=== PATIENT | male | born 1980 | race Caucasian/White ===

== ENCOUNTER 2018-05-29 18:19 | Emergency (ER) | payer MEDICAID, OTHER ==
[~2018-05-29] VITALS: Ht 165.1 cm; Wt 88.5 kg
[~2018-05-29 18:19] MED LIST: MOTRIN; SEPTRA
[2018-05-29 18:28] VITALS: BP 141/106
--- NOTE | 2018-05-29 18:45 | NUR ---
FLU SWAB SENT TO LAB
[2018-05-29] MEDS ORDERED: ACETAMINOPHEN 325 MG TAB PO ONE (20:30)
--- NOTE | 2018-05-29 20:30 | NUR ---
C/O RUNNY NOSE,BODY ACHE ,FEVER, COUGH,N/V X 3 DAYS. ORAL TEMP 97.7 AT THIS TIME. BREATHING EQUAL AND UNLABORED AT THIS TIME. ER MD MADE AWARE OF PT STATUS. MED HX: ASTHMA MED : NONE
[2018-05-29 21:27] VITALS: BP 146/87
--- NOTE | 2018-05-29 21:27 | NUR ---
Patient discharged with v/s stable. Written and verbal after care instructions given and explained. Patient alert, oriented and verbalized understanding of instructions. Ambulatory with steady gait. All questions addressed prior to discharge. ID band removed. Patient advised to follow up with PMD. Rx of Ibuprofen, Promethazine, and Acetaminophen given. Patient educated on indication of medication including possible reaction and side effects. Opportunity to ask questions provided and answered.
== END 2018-05-29 21:27 | disposition home or self-care (01) ==
LOC: MED 18:19
DX: J10.1 Influenza due to other identified influenza virus with other respiratory manifestations (principal); J45.909 Unspecified asthma, uncomplicated; Z79.899 Other long term (current) drug therapy
CPT/HCPCS: 36415; 87804; 99283

== ENCOUNTER 2020-05-06 11:18 | Emergency (ER) | payer OTHER ==
[~2020-05-06] VITALS: Ht 162.6 cm; Wt 83.9 kg
[2020-05-06 11:34] VITALS: BP 123/80
--- NOTE | 2020-05-06 11:43 | NUR ---
BIB SELF C/O LOWER BACK PAIN S/P TC X YESTERDAY. DENIES LOC. 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 PMH: ASTHMA
[2020-05-06] MEDS ORDERED: KETOROLAC 30 MG/ML VIAL IM ONE (12:15)
--- NOTE | 2020-05-06 12:36 | NUR ---
PATIENT TAKEN TO XRAY VIA WHEELCHAIR
[2020-05-06 13:42] VITALS: BP 124/84
--- NOTE | 2020-05-06 13:43 | NUR ---
Patient discharged with v/s stable. Written and verbal after care instructions given and explained. Patient alert, oriented and verbalized understanding of instructions. Ambulatory with steady gait. All questions addressed prior to discharge. ID band removed. Patient advised to follow up with PMD. Rx of Naprosyn 500mg and Milton 5mg-325mg given. Patient educated on indication of medication including possible reaction and side effects. Opportunity to ask questions provided and answered.
== END 2020-05-06 13:43 | disposition home or self-care (01) ==
LOC: MED 11:18
DX: S39.012A Strain of muscle, fascia and tendon of lower back, initial encounter (principal); J45.909 Unspecified asthma, uncomplicated; V49.9XXA Car occupant (driver) (passenger) injured in unspecified traffic accident, initial encounter; Y93.89 Activity, other specified; Y92.89 Other specified places as the place of occurrence of the external cause; Y99.8 Other external cause status
CPT/HCPCS: 72100; 96372; 99283; J1885

== ENCOUNTER 2021-03-31 13:15 | Emergency (ER) | payer OTHER ==
[~2021-03-31] VITALS: Ht 165.1 cm; Wt 86.4 kg
[2021-03-31 13:21] VITALS: BP 138/99
[2021-03-31] MEDS: ALBUTEROL SULFATE/IPRATROPIU 3 ML SOL IH ONE ×2 (14:04→15:08)
[2021-03-31] MEDS ORDERED: WATER STERILE 10 ML MC ONE (14:08)
[2021-03-31] MEDS ORDERED: methylPREDNISolone SS 125 MG/2 ML VIAL ONE (14:09)
[2021-03-31] MEDS: methylPREDNISolone SS 125 MG in WATER STERILE 2 ML IM ONE (14:18)
[2021-03-31] MEDS ORDERED: PRED20TA5 PO (14:43)
[2021-03-31] MEDS ORDERED: ALBU0.0912 IH (14:43)
[2021-03-31] MEDS: KETOROLAC 30 MG/ML VIAL IM ONE (14:59)
[2021-03-31 15:19] VITALS: BP 148/89
== END 2021-03-31 15:19 | disposition home or self-care (01) ==
LOC: MED 13:15
DX: J45.901 Unspecified asthma with (acute) exacerbation (principal); J06.9 Acute upper respiratory infection, unspecified; Z20.822 Contact with and (suspected) exposure to COVID-19
CPT/HCPCS: 71045; 87426; 87804; 93005; 94640; 96372; 99285; J1885; J2930; Q0092

== ENCOUNTER 2021-04-13 14:37 | Emergency (ER) | payer OTHER ==
[~2021-04-13] VITALS: Ht 162.6 cm; Wt 86.2 kg
[~2021-04-13 14:37] MED LIST changes: +ALBU0.0912 IH; +PRED20TA5 PO
[2021-04-13 15:38] VITALS: BP 151/96
[2021-04-13] MEDS ORDERED: AZIT250T4 PO (17:11)
[2021-04-13] MEDS ORDERED: CODE5SYR5 PO (17:11)
--- NOTE | 2021-04-13 17:48 | NUR ---
Patient discharged with v/s stable. Written and verbal after care instructions given and explained. Patient alert, oriented and verbalized understanding of instructions. Ambulatory with steady gait. All questions addressed prior to discharge. ID band removed. Patient advised to follow up with PMD. Rx of Azithromycin and Promethazine given. Patient educated on indication of medication including possible reaction and side effects. Opportunity to ask questions provided and answered. RIGOBERTO Melgar discharged his patient.
== END 2021-04-13 17:48 | disposition home or self-care (01) ==
LOC: MED 14:37
DX: U07.1 COVID-19 (principal); J45.909 Unspecified asthma, uncomplicated; Z79.899 Other long term (current) drug therapy
CPT/HCPCS: 71045; 99283

== ENCOUNTER 2021-08-03 08:06 | Emergency (ER) | payer OTHER ==
[~2021-08-03] VITALS: Ht 165.1 cm; Wt 86.6 kg
[~2021-08-03 08:06] MED LIST changes: +AZIT250T4 PO; +CODE5SYR5 PO
[2021-08-03 08:13] VITALS: BP 136/92
--- NOTE | 2021-08-03 08:36 | NUR ---
40/M BIB SELF WITH C/O INTERMITTENT FEVERS, COUGH, AND CONGESTION SINCE LAST NIGHT, REPORTS TAKING TYLENOL AND IBUPROFEN. DENIES SOB, CP. PT STATES N/V DENIES ABD PAIN. BREATH SOUND EXPIRATORY WHEEZES THROUGHOUT. BOWL SOUND ACTIVE. ABD SOFT AND NO TENDERNESS NOTED. PT AOX4, NO SIGNS OF DISTRESS. MEDHX: ASTHMA ALLERGIES: NKA
--- NOTE | 2021-08-03 08:41 | NUR ---
DR. BAR BEDSIDE EVALUATING PT
[2021-08-03] MEDS ORDERED: ALBUTEROL 0.083% 2.5 MG/3 ML NEBU INH ONE (08:50)
[2021-08-03] MEDS ORDERED: IPRATROPIUM 0.02% 0.5 MG/2.5 ML NEBU INH ONE (08:50)
--- NOTE | 2021-08-03 08:55 | NUR ---
[facility] THERAPY AND RESPIRATORY DRUGS GIVEN ORDERED ENCOURAGED PATIENT FOR INTERMITTENT DEEP BREATHING DURING THERAPY
--- NOTE | 2021-08-03 09:01 | NUR ---
RT BEDSIDE PROVIDING BREATHING TX
[2021-08-03] MEDS ORDERED: ONDANSETRON 4 MG TAB PO ONE (09:05)
[2021-08-03] MEDS ORDERED: ATRMDI IH (09:07)
[2021-08-03] MEDS ORDERED: ALBU0.0912 IH (09:07)
[2021-08-03] MEDS ORDERED: ONDA-188 SL (09:07)
--- NOTE | 2021-08-03 09:59 | NUR ---
Patient discharged with v/s stable. Written and verbal after care instructions given and explained. Patient alert, oriented and verbalized understanding of instructions. Ambulatory with steady gait. All questions addressed prior to discharge. ID band removed. Patient advised to follow up with PMD. Rx of ALBUTEROL, ZOFRAN, ATROVENT given. Patient educated on indication of medication including possible reaction and side effects. Opportunity to ask questions provided and answered.
== END 2021-08-03 09:59 | disposition home or self-care (01) ==
LOC: MED 08:06
DX: J45.901 Unspecified asthma with (acute) exacerbation (principal); B34.9 Viral infection, unspecified; R11.2 Nausea with vomiting, unspecified; R19.7 Diarrhea, unspecified; F17.200 Nicotine dependence, unspecified, uncomplicated; Z71.6 Tobacco abuse counseling; Z79.899 Other long term (current) drug therapy
CPT/HCPCS: 71045; 94640; 99283; J7613; J7644; Q0092; Q0162

== ENCOUNTER 2021-12-06 19:45 | Emergency (ER) | payer OTHER ==
[~2021-12-06] VITALS: Ht 165.1 cm; Wt 59.0 kg
[~2021-12-06 19:45] MED LIST changes: +ATRMDI IH; +ONDA-188 SL
[2021-12-06 19:47] VITALS: BP 134/75
--- NOTE | 2021-12-06 19:50 | NUR ---
PT TO BED 12
--- NOTE | 2021-12-06 19:51 | NUR ---
RT MADE AWARE, AWARE. 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
[2021-12-06] MEDS ORDERED: predniSONE 20 MG TAB PO ONE (20:00)
[2021-12-06] MEDS ORDERED: IPRATROPIUM 0.02% 0.5 MG/2.5 ML NEBU INH ONE (20:00)
[2021-12-06] MEDS ORDERED: ALBUTEROL 0.083% 2.5 MG/3 ML NEBU INH ONE (20:00)
--- NOTE | 2021-12-06 20:01 | NUR ---
Patient placed in bed, on monitor, on 2L NC. oxygen saturation is 96%.
--- NOTE | 2021-12-06 20:16 | NUR ---
RT AT BEDSIDE
[2021-12-06] MEDS ORDERED: BUDE1AER2 IH (21:50)
[2021-12-06] MEDS ORDERED: ALBU0.0912 INH (21:50)
[2021-12-06] MEDS ORDERED: [UNRECOGNIZED DRUG - CODE] MC (21:50)
[2021-12-06] MEDS ORDERED: PRED20TA5 PO (21:50)
[2021-12-06] MEDS ORDERED: PRON INH (21:56)
[2021-12-06 22:53] VITALS: BP 122/72
== END 2021-12-06 22:55 | disposition home or self-care (01) ==
LOC: MED 19:45
DX: J45.901 Unspecified asthma with (acute) exacerbation (principal)
CPT/HCPCS: 94640; 99283; J7512; J7613; J7644

== ENCOUNTER 2021-12-15 10:54 | Emergency (ER) | payer OTHER ==
[~2021-12-15] VITALS: Ht 165.1 cm; Wt 87.5 kg
[~2021-12-15 10:54] MED LIST changes: +ALBU0.0912 INH; +BUDE1AER2 IH; +PRON INH; +[UNRECOGNIZED DRUG - CODE] MC
[2021-12-15 10:59] VITALS: BP 134/48
--- NOTE | 2021-12-15 11:01 | NUR ---
AMBULATED TO BED 6
[2021-12-15] MEDS ORDERED: ALBUTEROL HFA MDI 90 MCG/ACTUATION 8 GM INH ONE ×2 (11:10→12:00)
[2021-12-15] MEDS ORDERED: predniSONE 20 MG TAB PO ONE ×2 (11:10→11:35)
--- NOTE | 2021-12-15 11:12 | NUR ---
41/M PRESENTS TO ED WITH C/O ASTHMA EXACERBATION SINCE LAST NIGHT. PATIENT REPORTS USINGH INHALER BUT STATES IT IS NOT PROVIDING RELIEF AND REPORTS HE IS AWAITING A NEBULIZER TO BE DELIVERED. AUDIBLE WHEEZING NOTED THROUGHOUT, PATIENT DENIES CP, DIZZINESS, STATES BEING SEEN HERE LAST WEEK FOR SAME SYMPTOMS.
--- NOTE | 2021-12-15 11:20 | NUR ---
[facility] THERAPY AND RESPIRATORY DRUG GIVEN ORDERED WITH SPACER EDUCATION PROVIDED
--- NOTE | 2021-12-15 11:50 | NUR ---
41YO MALE PT C/O ASTHMA EXACERBATION XLASTNIGHT. DENIES NO RELIEF AFTER USING INHALER. PRESENTS WITH EVEN LABORED BREATHING . WHEEZES AND CRACKLES NOTED LILA. DENIES N/V/D , CHEST PAIN OR SOB. REPORTS AXILLARY TEMP OF 99.0 AND BODY CHILLS XLAST NIGHT. STATES BEING SEEN 1 WEEK AGO HERE IN ER FOR S/S. 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 HX:DENIES NKA
--- NOTE | 2021-12-15 11:50 | NUR ---
pt swabbed for covid(iza) AND FLU . walked and handed to lab
--- NOTE | 2021-12-15 11:50 | NUR ---
Juan lindquist in [facility] - 12/15/21 at 1214 by [facility] pt swabbed for covid(iza). walked and handed to lab
--- NOTE | 2021-12-15 12:03 | NUR ---
[facility] THERAPY WITH SPACER AND RESPIRATORY DRUG GIVEN ORDERED EDUCATION PROVIDED
[2021-12-15 14:11] VITALS: BP 128/93
--- NOTE | 2021-12-15 15:00 | NUR ---
Patient discharged with v/s stable. Written and verbal after care instructions given and explained. Patient verbalized understanding. Ambulatory with steady gait. All questions addressed prior to discharge. Advised to follow up with PMD.
--- NOTE | 2021-12-15 15:30 | NUR ---
The patient's care was reviewed and supervised by Cece Palomino RN.
== END 2021-12-15 15:00 | disposition home or self-care (01) ==
LOC: MED 10:54
DX: J45.901 Unspecified asthma with (acute) exacerbation (principal); Z20.822 Contact with and (suspected) exposure to COVID-19; R19.7 Diarrhea, unspecified; Z79.899 Other long term (current) drug therapy; Z79.2 Long term (current) use of antibiotics
CPT/HCPCS: 71045; 87426; 87804; 94664; 99285; J7512

== ENCOUNTER 2022-04-04 09:44 | Emergency (ER) | payer OTHER ==
[~2022-04-04] VITALS: Ht 165.1 cm; Wt 89.4 kg
[2022-04-04 09:47] VITALS: BP 124/97
--- NOTE | 2022-04-04 09:53 | NUR ---
PT AMB TO BED 2.
[2022-04-04] MEDS ORDERED: ALBUTEROL 0.083% 2.5 MG/3 ML NEBU INH ONE (10:00)
[2022-04-04] MEDS ORDERED: IPRATROPIUM 0.02% 0.5 MG/2.5 ML NEBU INH ONE (10:00)
[2022-04-04] MEDS ORDERED: ONDANSETRON 4 MG ODT PO ONE (10:20)
--- NOTE | 2022-04-04 10:23 | NUR ---
rt tx at this time, pt lung crackles bl with 95% RA prior to tx
--- NOTE | 2022-04-04 10:33 | NUR ---
MEDICATED PT WITH ZOFRAN. PT IS ON BREATHING TX.
[2022-04-04] MEDS ORDERED: predniSONE 20 MG TAB PO ONE (10:40)
[2022-04-04] MEDS ORDERED: ALBUTEROL SULFATE/IPRATROPIU 3 ML SOL IH ONE (11:05)
[2022-04-04] MEDS ORDERED: PROM118S6 PO (11:22)
[2022-04-04] MEDS ORDERED: PRED20TA5 PO (11:22)
[2022-04-04] MEDS ORDERED: AMOX500C25 PO (11:22)
--- NOTE | 2022-04-04 11:33 | NUR ---
FOLLOW UP [facility] THERAPY GIVEN ORDERED
--- NOTE | 2022-04-04 12:05 | NUR ---
SECOND BREATHING TX DONE, PT TOLERATED WELL. Patient discharged with v/s stable. Written and verbal after care instructions given and explained. Patient alert, oriented and verbalized understanding of instructions. Ambulatory with steady gait. All questions addressed prior to discharge. ID band removed. Patient advised to follow up with PMD. Rx of AMOXIL AND PREDNISONE given. Patient educated on indication of medication including possible reaction and side effects. Opportunity to ask questions provided and answered.
[2022-04-04 12:06] VITALS: BP 134/75
== END 2022-04-04 12:06 | disposition home or self-care (01) ==
LOC: MED 09:44
DX: J45.901 Unspecified asthma with (acute) exacerbation (principal); Z20.822 Contact with and (suspected) exposure to COVID-19; K08.89 Other specified disorders of teeth and supporting structures; R03.0 Elevated blood-pressure reading, without diagnosis of hypertension; R11.2 Nausea with vomiting, unspecified; Z79.899 Other long term (current) drug therapy
CPT/HCPCS: 87426; 87804; 94640; 99283; J7512; J7613; J7644; Q0162

== ENCOUNTER 2022-06-08 07:36 | Emergency (ER) | payer OTHER ==
[~2022-06-08] VITALS: Ht 165.1 cm; Wt 91.6 kg
[~2022-06-08 07:36] MED LIST changes: +AMOX500C25 PO; +PROM118S6 PO
[2022-06-08 07:40] VITALS: BP 120/82
--- NOTE | 2022-06-08 07:53 | NUR ---
ASSUMED PATIENT CARE, NURSING ASSESSMENT COMPLETED.
[2022-06-08] MEDS ORDERED: IPRATROPIUM 0.02% 0.5 MG/2.5 ML NEBU INH ONE (07:55)
[2022-06-08] MEDS ORDERED: ALBUTEROL 0.083% 2.5 MG/3 ML NEBU INH ONE (07:55)
[2022-06-08] MEDS ORDERED: ONDANSETRON 4 MG ODT PO ONE (07:55)
--- NOTE | 2022-06-08 09:10 | NUR ---
SEEN AND REEVALUATED BY DR CALDWELL.
[2022-06-08] MEDS ORDERED: ALBU0.0912 IH (09:18)
[2022-06-08] MEDS ORDERED: PRED20TA5 PO (09:18)
[2022-06-08] MEDS ORDERED: ALBU1.25 NEB (09:18)
[2022-06-08] MEDS ORDERED: ATRO1TAB PO (09:18)
[2022-06-08] MEDS ORDERED: ONDA-188 PO (09:18)
[2022-06-08 09:28] VITALS: BP 132/92
--- NOTE | 2022-06-08 09:29 | NUR ---
Patient discharged with v/s stable. Written and verbal after care instructions given and explained. Patient alert, oriented and verbalized understanding of instructions. Ambulatory with steady gait. All questions addressed prior to discharge. ID band removed. Patient advised to follow up with PMD. Rx of ALBUTEROL, LOMOTIL, ZOFRAN, PREDNISONE given. Patient educated on indication of medication including possible reaction and side effects. Opportunity to ask questions provided and answered.
== END 2022-06-08 09:29 | disposition home or self-care (01) ==
LOC: MED 07:36
DX: J45.901 Unspecified asthma with (acute) exacerbation (principal); R11.10 Vomiting, unspecified; R19.7 Diarrhea, unspecified; Z79.899 Other long term (current) drug therapy
CPT/HCPCS: 94640; 99285; J7613; J7644

== ENCOUNTER 2023-01-08 19:23 | Emergency (ER) | payer OTHER ==
[~2023-01-08] VITALS: Ht 162.6 cm; Wt 86.2 kg
[~2023-01-08 19:23] MED LIST changes: +ALBU1.25 NEB; +ATRO1TAB PO; +ONDA-188 PO
[2023-01-08 19:40] VITALS: BP 99/50; PULSE 117; RESP 27; TEMP 98; O2SAT 92
[2023-01-08 19:55] VITALS: TEMP 98
[2023-01-08] MEDS ORDERED: ALBUTEROL SULFATE/IPRATROPIU 3 ML SOL IH ONE ×5 (19:57→23:50)
[2023-01-08 19:59] VITALS: O2SAT 91
[2023-01-08] MEDS ORDERED: methylPREDNISolone SS 125 MG/2 ML VIAL IVP ONE (20:05)
[2023-01-08] MEDS ORDERED: MAG SULF 2000 MG/WATER PREMIX 50 ML IV ONE (20:05)
[2023-01-08 20:14] VITALS: PULSE 123; RESP 35; O2SAT 91
[2023-01-08 21:00] LABS: BASOPHILS % (AUTO) 0.3 % (0.0-2.0); EOSINOPHILS # (AUTO) 0.3 K/uL (0-0.4); EOSINOPHILS % (AUTO) 2.3 % (0.0-4.0); HEMATOCRIT 47.9 % (36-52); LYMPHOCYTES # (AUTO) 1.1 K/uL (2.0-11.5); LYMPHOCYTES % (AUTO) 6.9 % (20.5-51.1); MEAN CORPUSCULAR HEMOGLOBIN 32 pg (27-31); MEAN CORPUSCULAR HGB CONC 34 g/dL (33-37); MEAN CORPUSCULAR VOLUME 94.2 fL (80-94); MONOCYTES # (AUTO) 1.5 K/uL (0.8-1.0); MONOCYTES % (AUTO) 9.6 % (1.7-9.3); NEUTROPHILS # (AUTO) 12.4 K/uL (1.8-7.7); NEUTROPHILS % (AUTO) 80.9 % (42.2-75.2); PLATELET COUNT (AUTO) 246 K/uL (140-450); RED BLOOD CELL COUNT(AUTO) 5.08 MIL/uL (4.20-6.10); RED CELL DISTRIBUTION WIDTH 13.9 % (11.6-13.7); WHITE BLOOD COUNT (AUTO) 15.3 K/uL (4.8-10.8)
[2023-01-08] MEDS ORDERED: NACL 0.9% 1,000 ML IV ONE (21:00)
[2023-01-08 21:17] LABS: ANION GAP 11.1 (8-16); CALCIUM 8.8 mg/dL (8.5-10.1); CARBON DIOXIDE 26.5 mmol/L (21-32); POTASSIUM 3.6 mmol/L (3.5-5.1)
[2023-01-08] MEDS ORDERED: KETOROLAC 30 MG/ML VIAL IVP ONE (21:55)
[2023-01-08] MEDS ORDERED: IPRATROPIUM 0.02% 0.5 MG/2.5 ML NEBU INH ONE (21:55)
[2023-01-08] MEDS ORDERED: ACETAMINOPHEN EXTRA STRENGTH 500 MG TAB PO ONE (21:55)
[2023-01-08] MEDS ORDERED: ALBUTEROL 0.083% 2.5 MG/3 ML NEBU INH ONE (21:55)
[2023-01-08 22:07] VITALS: PULSE 111; RESP 24; O2SAT 95
[2023-01-08] MEDS ORDERED: KETOROLAC 60 MG/2 ML VIAL IM ONE (22:40)
[2023-01-08 23:31] LABS: FLU A ANTIGEN negative (NEGATIVE); FLU B ANTIGEN NEGATIVE (NEGATIVE)
[2023-01-09] MEDS ORDERED: AZITHROMYCIN 500 MG in DEXTROSE 5% 250 ML IV ONE (01:05)
[2023-01-09] MEDS ORDERED: AZIT250T11 PO (01:16)
[2023-01-09] MEDS ORDERED: PRON INH (01:16)
[2023-01-09] MEDS ORDERED: ALBU0.0912 INH (01:16)
[2023-01-09] MEDS ORDERED: PRED10TA5 PO (01:16)
[2023-01-09] MEDS ORDERED: AZITHROMYCIN 500 MG INJ VIAL IV ONE (01:21)
[2023-01-09 03:40] VITALS: BP 123/93; PULSE 103; RESP 18; O2SAT 94
== END 2023-01-09 03:40 | disposition home or self-care (01) ==
LOC: MED 19:23
DX: J45.901 Unspecified asthma with (acute) exacerbation (principal); J20.9 Acute bronchitis, unspecified; Z79.899 Other long term (current) drug therapy; Z20.822 Contact with and (suspected) exposure to COVID-19
CPT/HCPCS: 36415; 71045; 80048; 85025; 85379; 87040; 87426; 87804; 93005; 94640; 96365; 96366; 96367; 96375; 99285; J0456; J1885; J2930; J3475; J7030; J7613; J7644; Q0092